=== PATIENT | male | born 1990 | race Caucasian/White ===

== ENCOUNTER 2017-09-26 19:03 | Emergency (ER) | payer MEDICARE, MEDICAID | END 2017-09-26 19:27 | disposition home or self-care (01) | LOC: NAV ERS 19:03 | DX: J06.9 Acute upper respiratory infection, unspecified (principal); F31.9 Bipolar disorder, unspecified; F17.210 Nicotine dependence, cigarettes, uncomplicated | CPT/HCPCS: 99283 ==